=== PATIENT | male | born 1995 | race Caucasian/White ===

== ENCOUNTER 2023-05-31 08:56 | Emergency (ER) | payer MEDICAID ==
[~2023-05-31] VITALS: Ht 162.6 cm; Wt 72.6 kg
[2023-05-31 09:10] VITALS: BP 125/67; PULSE 58; RESP 16; TEMP 98; O2SAT 99
[2023-05-31] MEDS ORDERED: KETO30CR TP ×2 (09:38→09:41)
[2023-05-31 10:04] VITALS: BP 125/76; PULSE 58; RESP 16; TEMP 98; O2SAT 99
== END 2023-05-31 10:05 | disposition home or self-care (01) ==
LOC: MED 08:56
DX: R21 Rash and other nonspecific skin eruption (principal); Z79.899 Other long term (current) drug therapy
CPT/HCPCS: 99281